=== PATIENT | female | born 1975 | race Native Hawaiian/Other Pacific Islander ===

== ENCOUNTER 2020-12-21 02:51 | Emergency (ER) | payer SELFPAY ==
[2020-12-21 04:08] LABS: Basophils # (Auto) 0.1 K/mm3 (0.0-0.1); Basophils % (Auto) 0.3 % (0.0-1.8); Eosinophils % (Auto) 0.1 % (0.0-4.3); Hematocrit 41.3 % (30.3-42.9); Hemoglobin 14.4 gm/dl (10.1-14.3); Lymphocytes # (Auto) 1.3 K/mm3 (1.2-5.4); Lymphocytes % (Auto) 8.2 % (13.4-35.0); Mean Corpuscular HGB Conc 35 % (30-34); Mean Corpuscular Volume 87 fl (79-97); Monocytes # (Auto) 0.5 K/mm3 (0.0-0.8); Monocytes % (Auto) 3.2 % (0.0-7.3); Platelet Count 242 K/mm3 (140-440); Red Blood Count 4.78 M/mm3 (3.65-5.03); Red Cell Distribution Width 12.6 % (13.2-15.2)
[2020-12-21 04:16] LABS: Alanine Aminotransferase 20 units/L (7-56); Albumin 4.5 g/dL (3.9-5); BUN/Creatinine Ratio 16; Blood Urea Nitrogen 14 mg/dL (7-17); Calcium 9.5 mg/dL (8.4-10.2); Hemolysis Index 5
[2020-12-21 04:17] LABS: Bacteria,Urine 2+ /HPF (Negative); Bilirubin,Urine NEG (Negative); Blood,Urine MOD (Negative); Color,Urine Yellow (Yellow); Mucus,Urine FEW /HPF; Urobilinogen,Urine < 2.0 mg/dL (<2.0)
[2020-12-21 04:19] LABS: HCG Qualitative,Urine Negative (Negative)
[2020-12-21] MEDS ORDERED: MORPHINE 4 MG/1 ML INJ IV ONE (04:28)
[2020-12-21] MEDS ORDERED: ONDANSETRON 4 MG/2 ML INJ IV ONE (04:28)
[2020-12-21] MEDS ORDERED: cefTRIAXone/NS 1 GM/50 ML 1 GM/50 ML BAG IV ONE (04:28)
[2020-12-21] MEDS ORDERED: SODIUM CHLORIDE 0.9% 1000 ML 1,000 ML IV ONE ×2 (04:29→07:16)
[2020-12-21] MEDS ORDERED: KETOROLAC 30 MG/1 ML INJ IV ONE (05:20)
--- NOTE | 2020-12-21 05:56 | Cat Scan Report ---
CT abdomen pelvis wo con INDICATION: left flank pain hx of kidney stones. TECHNIQUE: All CT scans at this location are performed using the following dose modulation technique: Automated exposure control. CONTRAST: None. COMPARISON: None available. CT ABDOMEN: Evaluation of the parenchymal organs demonstrates several nonobstructing right renal ston es. The largest is at the upper pole measuring 7 mm. Prominent distention of the left renal collectin g system and ureter extends the level of an 8.5 mm stone just below the ureteropelvic junction. A 1 m m nonobstructing stone is seen at the upper pole. Mild inflammation/fluid is seen adjacent to the lef t kidney. The remaining parenchymal organs are unremarkable. Negative for abdominal mass, adenopathy or fluid collection. The bowel is not dilated or thickened. CT PELVIS: Negative for more distal ureteral stone, pelvic fluid collection or inflammation. Mild diastases of the rectus muscles is noted. A fat-containing umbilical hernia is small. IMPRESSION: 1. 8.5 mm stone just distal to the left ureteropelvic junction. 2. Bilateral calyceal stones right greater than left. Signer Name: Ced Mondragon MD Signed: 12/21/2020 5:51 AM Workstation Name: [id number]
--- NOTE | 2020-12-21 07:05 | Emergency Department Report ---
ED General Adult HPI - General Chief complaint: Abdominal Pain Stated complaint: LEFT HIP PAIN Time Seen by Provider: 12/21/20 06:14 Source: patient Mode of arrival: Ambulatory Limitations: Language Barrier - History of Present Illness Initial comments: This is a 45-year-old female with left lower quadrant pain since last night. It was reminiscent of previous bouts of renal colic. Patient states that she had kidney stones in 2012 and 2019. It sounds like she described an endoscopic retrieval and history of nephrolithiasis. Her work-up predated my arrival. She has been medicated and given ceftriaxone for presumed UTI. She is comfortable and not complaining of pain at the time of my encounter. -: Gradual, hour(s) Location: abdomen, left Severity scale (0 -10): 0 Quality: aching Consistency: intermittent, now resolved Improves with: none Worsens with: none Associated Symptoms: denies other symptoms, nausea/vomiting Treatments Prior to Arrival: none - Related Data Allergies Allergy/AdvReac Type Severity Reaction Status Date / Time No Known Allergies Allergy Unverified 12/21/20 03:01 ED Review of Systems ROS: Stated complaint: LEFT HIP PAIN Other details as noted in HPI Constitutional: denies: chills, fever Eyes: eye discharge. denies: eye pain, vision change ENT: denies: ear pain, throat pain Respiratory: denies: cough, shortness of breath Cardiovascular: denies: chest pain, palpitations Endocrine: no symptoms reported Gastrointestinal: as per HPI, abdominal pain, nausea. denies: diarrhea Genitourinary: denies: urgency, dysuria Musculoskeletal: denies: back pain, arthralgia Skin: denies: rash, lesions Neurological: denies: headache, weakness, paresthesias Psychiatric: denies: anxiety, depression Hematological/Lymphatic: denies: easy bleeding, easy bruising ED Past Medical Hx - Past Medical History Previous Medical History?: Yes Additional medical history: kidney stones - Surgical History Past Surgical History?: Yes Additional Surgical History: lithotripsy - Social History Smoking Status: Never Smoker Substance Use Type: None ED Physical Exam - General Limitations: No Limitations General appearance: alert, in no apparent distress - Head Head exam: Present: atraumatic, normocephalic - Eye Eye exam: Present: normal appearance. Absent: scleral icterus - ENT ENT exam: Present: mucous membranes moist - Neck Neck exam: Present: normal inspection - Respiratory Respiratory exam: Present: normal lung sounds bilaterally. Absent: respiratory distress - Cardiovascular Cardiovascular Exam: Present: regular rate, normal rhythm. Absent: systolic murmur, diastolic murmur, rubs, gallop - GI/Abdominal GI/Abdominal exam: Present: soft, normal bowel sounds. Absent: distended, tenderness, guarding, rebound - Extremities Exam Extremities exam: Present: normal inspection - Back Exam Back exam: Present: normal inspection - Neurological Exam Neurological exam: Present: alert, oriented X3, CN II-XII intact. Absent: motor sensory deficit - Psychiatric Psychiatric exam: Present: normal affect, normal mood - Skin Skin exam: Present: warm, dry, intact, normal color. Absent: rash ED Course Vital Signs 12/21/20 12/21/20 12/21/20 03:03 05:02 05:24 Temperature 98.0 F Pulse Rate 78 Respiratory 17 18 Rate Blood Pressure 171/100 Blood Pressure [Left] O2 Sat by Pulse 99 99 Oximetry 12/21/20 12/21/20 12/21/20 05:26 05:28 05:31 Temperature Pulse Rate 91 H Respiratory 20 20 Rate Blood Pressure 160/94 Blood Pressure 160/94 [Left] O2 Sat by Pulse 98 98 99 Oximetry 12/21/20 12/21/20 05:45 06:01 Temperature Pulse Rate Respiratory Rate Blood Pressure 154/93 154/93 Blood Pressure [Left] O2 Sat by Pulse 99 99 Oximetry - Reevaluation(s) Reevaluation #1: Discussed with Dr. Hein. 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 Patient is meeting criteria for endoscopic retrieval or nephrostomy I believe. Patient is to be transferred to the [facility] emergency department for further care and evaluation. 12/21/20 07:04 12/21/20 07:05 ED Medical Decision Making - Lab Data Result diagrams: 12/21/20 03:42 12/21/20 03:42 Laboratory Results - last 24 hr 12/21/20 12/21/20 12/21/20 03:42 03:42 Unknown WBC 16.3 H RBC 4.78 Hgb 14.4 H Hct 41.3 MCV 87 MCH 30 MCHC 35 H RDW 12.6 L Plt Count 242 Lymph % (Auto) 8.2 L [place] % (Auto) 3.2 Eos % (Auto) 0.1 Baso % (Auto) 0.3 Lymph # (Auto) 1.3 [place] # (Auto) 0.5 Eos # (Auto) 0.0 Baso # (Auto) 0.1 Seg Neutrophils % 88.2 H Seg Neutrophils # 14.4 H Sodium 139 Potassium 4.2 Chloride 100.1 Carbon Dioxide 29 Anion Gap 14 BUN 14 Creatinine 0.9 Estimated GFR > 60 BUN/Creatinine Ratio 16 Glucose 143 H Calcium 9.5 Total Bilirubin 0.30 AST 20 ALT 20 Alkaline Phosphatase 113 Total Protein 7.1 Albumin 4.5 Albumin/Globulin Ratio 1.7 Urine Color Yellow Urine Turbidity Slightly-cloudy Urine pH 7.0 Ur Specific [place] 1.018 Urine Protein 30 mg/dl Urine Glucose (UA) Neg Urine Ketones Neg Urine Blood Mod Urine Nitrite Pos Urine Bilirubin Neg Urine Urobilinogen < 2.0 Ur Leukocyte Esterase Tr Urine WBC (Auto) 26.0 H Urine RBC (Auto) 46.0 U Epithel Cells (Auto) 7.0 Urine Bacteria (Auto) 2+ Urine Mucus Few Urine HCG, Qual Negative - Radiology Data Radiology results: report reviewed (8.5 mm stone at the UPJ on the left with obstruction.) Critical care attestation.: If time is entered above; I have spent that time in minutes in the direct care of this critically ill patient, excluding procedure time. ED Disposition Clinical Impression: Renal colic on left side, Obstruction of left ureteropelvic junction (UPJ) UTI (urinary tract infection) Qualifiers: Urinary tract infection type: site unspecified Hematuria presence: with hematuria Qualified Code(s): N39.0 - Urinary tract infection, site not specified; R31.9 - Hematuria, unspecified Leukocytosis Qualifiers: Leukocytosis type: other Qualified Code(s): D72.828 - Other elevated white blood cell count Disposition: DC/TX-70 ANOTHER TYPE HLTHCARE Is pt being admited?: No Does the pt Need Aspirin: No Condition: Stable Instructions: Abdominal Pain (ED) Referrals: PRIMARY CAREMD [Primary Care Provider] - 3-5 Days Time of Disposition: 07:11
[2020-12-21 10:18] VITALS: BP 123/82
== END 2020-12-21 10:19 | disposition other institution (70) ==
LOC: ED 02:51
DX: N13.5 Crossing vessel and stricture of ureter without hydronephrosis (principal); N23 Unspecified renal colic; N39.0 Urinary tract infection, site not specified; D72.829 Elevated white blood cell count, unspecified
CPT/HCPCS: 36415; 74176; 80053; 81001; 81025; 85025; 87086; 96361; 96365; 96375; 99285; J0696; J1885; J2270; J2405; J7030